=== PATIENT | male | born 1985 | race Two or more races ===

== ENCOUNTER 2024-09-24 09:51 | Outpatient (RCR) | payer MEDICAID, SELFPAY ==
--- NOTE | 2024-09-24 16:12 | PTNOTE_ITS ---
PT OP Initial Eval Patient Information Outpatient Physical Therapy Treatment Date: 09/24/24 Visit Reasons: right finger surgery Medical Diagnosis: D16.11; M79.644 Treatment Dx #1: Right Hand Pain Start of Care: 09/24/24 Smoking Status Smoking Status: Never smoker Initial Assessment Subjective: Pt is a 39 y/o male s/p right index cyst removal 08/17/24. Pt denies of pain and limitation. Pt has been able to resume all ADLs lately without limitation. Pt feels comfortable not doing physical therapy. Objective: Right Wrist AROM: all motions are WNL Right Wrist MMTs: grossly 4/5 [employer] Strength L: 140 lbs R: 143 lbs Assessment: Pt demonstrate functional right hand mobility and strength and will not benefit from physical therapy at this time. Pt was evaluated and d/c from care, thank you for your referrals. Short Term and [facility] Goals 1) Eval and D/C 2) Follow up with MD [facility] Treatment Plan Frequency and Duration: 1x Certification Dates: 09/24/24 to 12/25/24 Procedure Charges OP PT Eval Mod Complex 30 minutes: Yes
== END 2024-10-18 23:59 | disposition home or self-care (01) ==
LOC: CPTX 09:51
DX: M79.641 Pain in right hand (principal); M79.644 Pain in right finger(s); D16.11 Benign neoplasm of short bones of right upper limb; Z98.890 Other specified postprocedural states
CPT/HCPCS: 97162